=== PATIENT | male | born 1970 | race Caucasian/White ===

== ENCOUNTER 2017-05-01 09:23 | Inpatient (IN) | payer MEDICARE ==
[~2017-05-01] VITALS: Ht 177.8 cm; Wt 86.9 kg
[~2017-05-01 09:23] MED LIST: AMPH20TA2 PO; ATEN-104; DIAZ10TA; DIAZ2TAB PO; DISU500T2; HYDR50CA PO; OMEP-110 PO; OXCA300T PO; QUET400T4; TRAZ100T15 PO; ZIPR60CA2 PO; ZIPR80CA2; ZIPR80CA3 PO; ZOLP10TA
[2017-05-01 09:54] LABS: HEMATOCRIT 43.8 % (39.2-51.8); HEMOGLOBIN 14.5 g/dL (13.7-18.0); WHITE BLOOD COUNT 7.8 x10^3/uL (3.4-10)
[2017-05-01] MEDS ORDERED: SODIUM CHLORIDE FLUSH 10ML SYR IVF ONE (10:00)
[2017-05-01 10:03] LABS: ASPARTATE AMINO TRANSFERASE 71 U/L (15-37); BLOOD UREA NITROGEN 21 mg/dL (7-18)
[2017-05-01 11:31] LABS: DAU SCREEN DISCLAIMER
[2017-05-01] MEDS ORDERED: BACITRACIN ZINC OINT 500U/GM, 0.9 GM ONE (11:54)
[2017-05-01] MEDS ORDERED: SODIUM CHLORIDE 0.9% 1,000ML IVBOLUS ONE (12:30)
[2017-05-01] MEDS ORDERED: ONDANSETRON ODT 4 MG PO PRN (13:30)
[2017-05-01] MEDS ORDERED: ONDANSETRON 2MG/ML, 2ML IVPush PRN (13:30)
[2017-05-01] MEDS ORDERED: ZOLPIDEM 5MG TABLET PO PRN (13:30)
[2017-05-01] MEDS ORDERED: BISACODYL 10 MG SUPP PR PRN (13:30)
[2017-05-01] MEDS ORDERED: ACETAMINOPHEN 325 MG TABLET PO PRN (13:30)
[2017-05-01] MEDS ORDERED: LABETALOL 5MG/ML, 20ML IVPush PRN (13:30)
[2017-05-01 15:37] VITALS: BP 123/79
[2017-05-01] MEDS: SODIUM CHLORIDE 0.9% 1,000 ML IV SCH ×2 (16:42→21:40)
[2017-05-01] MEDS: OMEPRAZOLE 20 MG CAPSULE.DR PO SCH (17:36)
[2017-05-01] MEDS: HEPARIN 5,000 UNITS/ML, 1ML SQ SCH (17:36)
[2017-05-01 19:52] VITALS: BP 115/76
[2017-05-01] MEDS: NICOTINE 7 MG/24 HR PATCH.TD24 TD SCH (20:27)
[2017-05-01] MEDS: TRAZODONE 100MG TABLET PO SCH (20:27)
[2017-05-02] MEDS: HEPARIN 5,000 UNITS/ML, 1ML SQ SCH ×3 (00:51→16:46)
[2017-05-02 01:21] VITALS: BP 131/86
[2017-05-02] MEDS: SODIUM CHLORIDE 0.9% 1,000 ML IV SCH ×4 (03:09→16:08)
[2017-05-02 06:08] LABS: BLOOD UREA NITROGEN 24 mg/dL (7-18)
[2017-05-02 07:38] VITALS: BP 127/73
[2017-05-02] MEDS: OXCARBAZEPINE 150 MG TABLET PO SCH (09:00)
[2017-05-02] MEDS: ATENOLOL 50 MG TABLET PO SCH (09:00)
[2017-05-02] MEDS: OMEPRAZOLE 20 MG CAPSULE.DR PO SCH ×2 (09:03→16:50)
[2017-05-02 12:12] LABS: BLOOD UREA NITROGEN 27 mg/dL (7-18)
[2017-05-02 12:53] VITALS: BP 140/89
[2017-05-02] MEDS ORDERED: PHARMACY MAY ADJ FOR RENAL FX MC PRN (14:00)
[2017-05-02 18:05] LABS: BLOOD UREA NITROGEN 26 mg/dL (7-18)
[2017-05-02 19:41] VITALS: BP 111/75
[2017-05-02] MEDS: NICOTINE 7 MG/24 HR PATCH.TD24 TD SCH (20:00)
[2017-05-02] MEDS: THIAMINE 100MG TABLET PO SCH (21:18)
[2017-05-02] MEDS: TRAZODONE 100MG TABLET PO SCH (21:18)
[2017-05-02 23:33] LABS: BLOOD UREA NITROGEN 28 mg/dL (7-18)
[2017-05-03] MEDS: HEPARIN 5,000 UNITS/ML, 1ML SQ SCH ×3 (00:20→16:26)
[2017-05-03 00:38] VITALS: BP 111/74
[2017-05-03 05:21] LABS: BLOOD UREA NITROGEN 29 mg/dL (7-18)
[2017-05-03 06:45] VITALS: BP 122/79
[2017-05-03] MEDS: SODIUM CHLORIDE 0.9% 1,000 ML IV SCH ×2 (07:50→16:27)
[2017-05-03] MEDS: OMEPRAZOLE 20 MG CAPSULE.DR PO SCH ×2 (07:52→17:17)
[2017-05-03] MEDS: THIAMINE 100MG TABLET PO SCH ×2 (07:52→20:55)
[2017-05-03] MEDS: ATENOLOL 50 MG TABLET PO SCH (07:53)
[2017-05-03] MEDS: OXCARBAZEPINE 150 MG TABLET PO SCH (07:53)
[2017-05-03 12:39] VITALS: BP 120/77
[2017-05-03 12:58] LABS: BLOOD UREA NITROGEN 31 mg/dL (7-18)
[2017-05-03] MEDS ORDERED: BUSP10TA PO (14:30)
[2017-05-03] MEDS ORDERED: FLUO20TA25 PO (14:30)
[2017-05-03] MEDS ORDERED: QUET300T5 PO (14:30)
[2017-05-03] MEDS ORDERED: PHARMACY MAY ADJ FOR RENAL FX MC PRN (19:00)
[2017-05-03 19:20] VITALS: BP 132/86
[2017-05-03] MEDS: NICOTINE 7 MG/24 HR PATCH.TD24 TD SCH (20:00)
[2017-05-03] MEDS: QUETIAPINE 100MG TABLET PO SCH (20:55)
[2017-05-03] MEDS: TRAZODONE 100MG TABLET PO SCH (20:55)
[2017-05-03] MEDS: hydrOXyzine 50MG TABLET PO SCH (20:55)
[2017-05-04] MEDS: HEPARIN 5,000 UNITS/ML, 1ML SQ SCH ×3 (00:01→17:11)
[2017-05-04] MEDS: SODIUM CHLORIDE 0.9% 1,000 ML IV SCH ×4 (00:02→21:42)
[2017-05-04 00:58] VITALS: BP 131/86
[2017-05-04 04:48] LABS: BLOOD UREA NITROGEN 35 mg/dL (7-18)
[2017-05-04 06:45] VITALS: BP 108/70
[2017-05-04 08:06] VITALS: BP 118/66
[2017-05-04] MEDS: OMEPRAZOLE 20 MG CAPSULE.DR PO SCH ×2 (08:07→17:13)
[2017-05-04] MEDS: hydrOXyzine 50MG TABLET PO SCH ×3 (08:07→21:33)
[2017-05-04] MEDS: THIAMINE 100MG TABLET PO SCH ×2 (08:07→21:33)
[2017-05-04] MEDS: FLUOXETINE 20 MG CAPSULE PO SCH (08:07)
[2017-05-04] MEDS: QUETIAPINE 100MG TABLET PO SCH ×2 (08:08→21:34)
[2017-05-04] MEDS: ATENOLOL 50 MG TABLET PO SCH (08:08)
[2017-05-04] MEDS: OXCARBAZEPINE 150 MG TABLET PO SCH (08:08)
[2017-05-04] MEDS: DOCUSATE 100 MG CAPSULE PO PRN ×2 (08:16→21:48)
[2017-05-04 12:15] VITALS: BP 115/75
[2017-05-04 19:45] VITALS: BP 134/84
[2017-05-04] MEDS: NICOTINE 7 MG/24 HR PATCH.TD24 TD SCH (21:32)
[2017-05-04] MEDS: TRAZODONE 100MG TABLET PO SCH (21:34)
[2017-05-05 01:08] VITALS: BP 127/79
[2017-05-05] MEDS: HEPARIN 5,000 UNITS/ML, 1ML SQ SCH ×3 (01:13→16:45)
[2017-05-05] MEDS: SODIUM CHLORIDE 0.9% 1,000 ML IV SCH (04:33)
[2017-05-05 05:40] LABS: BLOOD UREA NITROGEN 33 mg/dL (7-18)
[2017-05-05 07:56] VITALS: BP 125/84
[2017-05-05] MEDS: FLUOXETINE 20 MG CAPSULE PO SCH (08:00)
[2017-05-05] MEDS: OMEPRAZOLE 20 MG CAPSULE.DR PO SCH ×2 (08:00→16:42)
[2017-05-05] MEDS: THIAMINE 100MG TABLET PO SCH ×2 (08:00→21:47)
[2017-05-05] MEDS: QUETIAPINE 100MG TABLET PO SCH ×2 (08:00→21:47)
[2017-05-05] MEDS: hydrOXyzine 50MG TABLET PO SCH ×3 (08:00→21:46)
[2017-05-05] MEDS: OXCARBAZEPINE 150 MG TABLET PO SCH (08:01)
[2017-05-05] MEDS: ATENOLOL 50 MG TABLET PO SCH (08:01)
[2017-05-05] MEDS: SODIUM ACETATE 75 MEQ in SODIUM CHLORIDE 0.45% 1,000 ML IV SCH ×2 (10:36→19:28)
[2017-05-05] MEDS: POTASSIUM CHLORIDE 20 MEQ PACKET PO SCH ×2 (10:37→16:43)
[2017-05-05 14:01] VITALS: BP 134/91
[2017-05-05] MEDS: NICOTINE 7 MG/24 HR PATCH.TD24 TD SCH (20:00)
[2017-05-05] MEDS: TRAZODONE 100MG TABLET PO SCH (21:47)
[2017-05-05 21:59] VITALS: BP 129/79
[2017-05-06] MEDS: HEPARIN 5,000 UNITS/ML, 1ML SQ SCH ×3 (00:39→16:49)
[2017-05-06] MEDS: SODIUM ACETATE 75 MEQ in SODIUM CHLORIDE 0.45% 1,000 ML IV SCH (02:37)
[2017-05-06 03:45] VITALS: BP 130/82
[2017-05-06 06:08] LABS: BLOOD UREA NITROGEN 29 mg/dL (7-18)
[2017-05-06] MEDS ORDERED: SODIUM CHLORIDE 0.45% IV SCH (08:00)
[2017-05-06] MEDS ORDERED: POTASSIUM CHLORIDE IV SCH (08:00)
[2017-05-06] MEDS ORDERED: SODIUM ACETATE IV SCH (08:00)
[2017-05-06] MEDS: THIAMINE 100MG TABLET PO SCH ×2 (08:12→20:40)
[2017-05-06] MEDS: OXCARBAZEPINE 150 MG TABLET PO SCH (08:12)
[2017-05-06] MEDS: POTASSIUM CHLORIDE 20 MEQ PACKET PO SCH ×2 (08:12→16:49)
[2017-05-06] MEDS: FLUOXETINE 20 MG CAPSULE PO SCH (08:13)
[2017-05-06] MEDS: QUETIAPINE 100MG TABLET PO SCH ×2 (08:13→20:40)
[2017-05-06] MEDS: OMEPRAZOLE 20 MG CAPSULE.DR PO SCH ×2 (08:13→16:50)
[2017-05-06] MEDS: ATENOLOL 50 MG TABLET PO SCH (08:13)
[2017-05-06] MEDS: hydrOXyzine 50MG TABLET PO SCH ×3 (08:13→20:39)
[2017-05-06 08:28] VITALS: BP 138/75
[2017-05-06 14:48] VITALS: BP 142/77
[2017-05-06] MEDS ORDERED: PHARMACY MAY ADJ FOR RENAL FX MC PRN (19:30)
[2017-05-06] MEDS ORDERED: ONDANSETRON ODT 4 MG PO PRN (19:30)
[2017-05-06] MEDS ORDERED: ONDANSETRON 2MG/ML, 2ML IVPush PRN (19:30)
[2017-05-06] MEDS ORDERED: ZOLPIDEM 5MG TABLET PO PRN (19:30)
[2017-05-06] MEDS ORDERED: LABETALOL 5MG/ML, 20ML IVPush PRN (19:30)
[2017-05-06] MEDS ORDERED: ACETAMINOPHEN 325 MG TABLET PO PRN (19:30)
[2017-05-06 19:54] VITALS: BP 135/72
[2017-05-06] MEDS: NICOTINE 7 MG/24 HR PATCH.TD24 TD SCH (20:00)
[2017-05-06] MEDS: POTASSIUM CHLORIDE IV SCH (20:36)
[2017-05-06] MEDS: SODIUM CHLORIDE 0.45% IV SCH (20:36)
[2017-05-06] MEDS: SODIUM ACETATE IV SCH (20:36)
[2017-05-06] MEDS: TRAZODONE 100MG TABLET PO SCH (20:40)
[2017-05-07] MEDS: HEPARIN 5,000 UNITS/ML, 1ML SQ SCH ×3 (00:11→16:31)
[2017-05-07 00:14] VITALS: BP 130/79
[2017-05-07] MEDS: SODIUM ACETATE IV SCH ×4 (03:54→21:54)
[2017-05-07] MEDS: POTASSIUM CHLORIDE IV SCH ×4 (03:54→21:54)
[2017-05-07] MEDS: SODIUM CHLORIDE 0.45% IV SCH ×4 (03:54→21:54)
[2017-05-07 07:19] VITALS: BP 142/88
[2017-05-07] MEDS: POTASSIUM CHLORIDE 20 MEQ PACKET PO SCH ×2 (07:46→17:28)
[2017-05-07] MEDS: OMEPRAZOLE 20 MG CAPSULE.DR PO SCH ×2 (07:46→17:28)
[2017-05-07 08:47] LABS: BLOOD UREA NITROGEN 22 mg/dL (7-18)
[2017-05-07] MEDS: OXCARBAZEPINE 150 MG TABLET PO SCH (09:00)
[2017-05-07] MEDS: ATENOLOL 50 MG TABLET PO SCH (09:00)
[2017-05-07] MEDS: THIAMINE 100MG TABLET PO SCH ×2 (09:22→20:05)
[2017-05-07] MEDS: QUETIAPINE 100MG TABLET PO SCH ×2 (09:23→20:05)
[2017-05-07] MEDS: hydrOXyzine 50MG TABLET PO SCH ×3 (09:23→20:05)
[2017-05-07] MEDS: FLUOXETINE 20 MG CAPSULE PO SCH (09:23)
[2017-05-07 14:14] VITALS: BP 135/86
[2017-05-07] MEDS: NICOTINE 7 MG/24 HR PATCH.TD24 TD SCH (20:00)
[2017-05-07 20:02] VITALS: BP 147/92
[2017-05-07] MEDS: TRAZODONE 100MG TABLET PO SCH (20:05)
[2017-05-08 01:55] VITALS: BP 159/82
[2017-05-08] MEDS: HEPARIN 5,000 UNITS/ML, 1ML SQ SCH ×3 (02:12→17:03)
[2017-05-08 05:25] LABS: HEMATOCRIT 33.6 % (39.2-51.8); HEMOGLOBIN 11.1 g/dL (13.7-18.0); WHITE BLOOD COUNT 7.4 x10^3/uL (3.4-10)
[2017-05-08] MEDS: POTASSIUM CHLORIDE IV SCH (05:28)
[2017-05-08] MEDS: SODIUM ACETATE IV SCH (05:28)
[2017-05-08] MEDS: SODIUM CHLORIDE 0.45% IV SCH (05:28)
[2017-05-08 05:33] LABS: BLOOD UREA NITROGEN 19 mg/dL (7-18)
[2017-05-08 05:37] LABS: ASPARTATE AMINO TRANSFERASE 53 U/L (15-37)
[2017-05-08 06:50] VITALS: BP 148/88
[2017-05-08] MEDS: POTASSIUM CHLORIDE 20 MEQ PACKET PO SCH ×2 (08:54→17:02)
[2017-05-08] MEDS: hydrOXyzine 50MG TABLET PO SCH ×3 (08:55→21:53)
[2017-05-08] MEDS: OMEPRAZOLE 20 MG CAPSULE.DR PO SCH ×2 (08:55→17:02)
[2017-05-08] MEDS: FLUOXETINE 20 MG CAPSULE PO SCH (08:56)
[2017-05-08] MEDS: ATENOLOL 50 MG TABLET PO SCH (08:56)
[2017-05-08] MEDS: QUETIAPINE 100MG TABLET PO SCH ×2 (08:56→21:54)
[2017-05-08] MEDS: OXCARBAZEPINE 150 MG TABLET PO SCH (08:57)
[2017-05-08] MEDS: THIAMINE 100MG TABLET PO SCH ×2 (08:57→21:54)
[2017-05-08] MEDS ORDERED: MAGNESIUM SULFATE PMX 2GM/50ML 50 ML IV ONE (11:00)
[2017-05-08] MEDS: MULTIVITAMIN 1 TABLET PO SCH (12:07)
[2017-05-08] MEDS: MAGNESIUM CHLORIDE 64 MG TABLET.DR PO SCH ×2 (12:07→21:54)
[2017-05-08] MEDS: MAGNESIUM OXIDE 400 MG TABLET PO SCH ×2 (12:07→21:53)
[2017-05-08 14:53] VITALS: BP 114/70
[2017-05-08] MEDS: NICOTINE 7 MG/24 HR PATCH.TD24 TD SCH (20:00)
[2017-05-08 20:02] VITALS: BP 131/80
[2017-05-08] MEDS: TRAZODONE 100MG TABLET PO SCH (21:54)
[2017-05-09] MEDS: HEPARIN 5,000 UNITS/ML, 1ML SQ SCH ×3 (01:18→16:59)
[2017-05-09 01:56] VITALS: BP 134/70
[2017-05-09 06:52] VITALS: BP 133/85
[2017-05-09 07:18] LABS: BLOOD UREA NITROGEN 18 mg/dL (7-18)
[2017-05-09] MEDS: OXCARBAZEPINE 150 MG TABLET PO SCH (09:25)
[2017-05-09] MEDS: THIAMINE 100MG TABLET PO SCH (09:25)
[2017-05-09] MEDS: POTASSIUM CHLORIDE 20 MEQ PACKET PO SCH ×2 (09:25→16:58)
[2017-05-09] MEDS: OMEPRAZOLE 20 MG CAPSULE.DR PO SCH ×2 (09:26→16:58)
[2017-05-09] MEDS: hydrOXyzine 50MG TABLET PO SCH ×2 (09:26→16:58)
[2017-05-09] MEDS: MULTIVITAMIN 1 TABLET PO SCH (09:26)
[2017-05-09] MEDS: QUETIAPINE 100MG TABLET PO SCH (09:26)
[2017-05-09] MEDS: MAGNESIUM CHLORIDE 64 MG TABLET.DR PO SCH (09:26)
[2017-05-09] MEDS: MAGNESIUM OXIDE 400 MG TABLET PO SCH (09:26)
[2017-05-09] MEDS: FLUOXETINE 20 MG CAPSULE PO SCH (09:27)
[2017-05-09] MEDS: ATENOLOL 50 MG TABLET PO SCH (09:30)
[2017-05-09 12:35] VITALS: BP 126/80
[2017-05-09] MEDS ORDERED: MULT1TAB60 PO (13:21)
[2017-05-09] MEDS ORDERED: DOCU-131 PO (13:21)
== END 2017-05-09 17:50 | DRG 682 ==
LOC: ED 12:39 → EDIP 12:40 → ED 13:12 → 4NOR 15:25
PROVIDERS: ADMIT Internal Medicine; ATTEND Internal Medicine
DX: N17.0 Acute kidney failure with tubular necrosis (principal); G92 Toxic encephalopathy; E43 Unspecified severe protein-calorie malnutrition; M62.82 Rhabdomyolysis; E87.2 Acidosis; K70.9 Alcoholic liver disease, unspecified; E83.42 Hypomagnesemia; E87.1 Hypo-osmolality and hyponatremia; T43.621A Poisoning by amphetamines, accidental (unintentional), initial encounter; T42.4X1A Poisoning by benzodiazepines, accidental (unintentional), initial encounter; F15.929 Other stimulant use, unspecified with intoxication, unspecified; E87.6 Hypokalemia; F17.210 Nicotine dependence, cigarettes, uncomplicated; F20.9 Schizophrenia, unspecified; F41.9 Anxiety disorder, unspecified; I10 Essential (primary) hypertension; K21.9 Gastro-esophageal reflux disease without esophagitis; F32.9 Major depressive disorder, single episode, unspecified; M19.90 Unspecified osteoarthritis, unspecified site; S80.212A Abrasion, left knee, initial encounter; S80.211A Abrasion, right knee, initial encounter; Y08.89XA Assault by other specified means, initial encounter; Y93.89 Activity, other specified; Y92.89 Other specified places as the place of occurrence of the external cause; Z87.81 Personal history of (healed) traumatic fracture
CPT/HCPCS: 36415; 70450; 72125; 80048; 80053; 80076; 80307; 82550; 83735; 84100; 85025; 96360; 96361; J1644; J3480; J3475; J7030

== ENCOUNTER 2019-02-28 12:07 | Inpatient (IN) | payer MEDICARE ==
[~2019-02-28] VITALS: Ht 170.2 cm; Wt 75.3 kg
[~2019-02-28 12:07] MED LIST changes: +BUSP10TA PO; +DOCU-131 PO; +FLUO20TA25 PO; +MULT1TAB60 PO; -OXCA300T PO; +OXCA300T19 PO; +QUET300T5 PO; +TRAZ-137 PO; -TRAZ100T15 PO
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
[2019-02-28] MEDS ORDERED: PLEASE ENTER HEIGHT AND WEIGHT MC SCH (12:30)
[2019-02-28] MEDS ORDERED: LORazepam 2 MG/ML, 1ML IM ONE (12:30)
[2019-02-28] MEDS ORDERED: PLEASE ENTER ALLERGIES MC SCH (12:30)
[2019-02-28] MEDS ORDERED: ZIPRASIDONE 20 MG INJ IM ONE ×2 (12:30→12:34)
[2019-02-28] MEDS ORDERED: LORazepam 2 MG/ML, 1ML ONE (12:35)
--- NOTE | 2019-02-28 12:36 | NUR ---
Report from Jaylin HEWITT. Pt thrashing in bed, remains in 4 point leather restraints, safety maintained. Pt screaming, rambling speech. Sitter at bedside.
--- NOTE | 2019-02-28 13:06 | NUR ---
Attepted EKG at 1306, unable to get it. PT still hyperactive and thrashing around.
--- NOTE | 2019-02-28 13:32 | NUR ---
Pt still agitated, unable to complete CT at this time.
[2019-02-28 13:40] LABS: MEAN CORPUSCULAR HEMOGLOBIN 29.3 pg (27.5-34.5); MEAN CORPUSCULAR HGB CONC 32.9 g/dL (33.2-36.2); MEAN CORPUSCULAR VOLUME 89.2 fL (81-97); MEAN PLATELET VOLUME 7.6 fL (7.4-10.4); PLATELET COUNT 251 x10^3/uL (130-400); RED BLOOD COUNT 5.38 x10^6/uL (4.38-5.82); RED CELL DISTRIBUTION WIDTH 13.2 % (9.4-14.8)
[2019-02-28 13:48] LABS: ALANINE AMINOTRANSFERASE 40 U/L (12-78); ALBUMIN 4.3 g/dL (3.4-5.0); ANION GAP 15 mmol/L (5-15); CALCIUM 9.5 mg/dL (8.5-10.1); CHLORIDE 105 mmol/L (98-107); CREATININE 1.47 mg/dL (0.7-1.3)
[2019-02-28 13:54] LABS: SALICYLATE LEVEL < 1.7 mg/dL (2.8-20.0)
[2019-02-28 14:01] LABS: ALKALINE PHOSPHATASE 86 U/L (45-117); BILIRUBIN,TOTAL 1.7 mg/dL (0.2-1.0); CREATINE KINASE, TOTAL 1412 U/L (39-308); TOTAL PROTEIN 8.2 g/dL (6.4-8.2)
[2019-02-28 14:07] LABS: MD YES
[2019-02-28 14:10] LABS: BANDS%(MANUAL) 7 % (0-7); LYMPH#(MANUAL) 0.81 x10^3/uL (1-3.4); LYMPHS% (MANUAL) 3 % (22-44); MONOS#(MANUAL) 1.08 x10^3/uL (0.3-2.7); MONOS% (MANUAL) 4 % (2-9); REACTIVE LYMPHS # (MANUAL) 0.54 x10^3/uL (0-0); REACTIVE LYMPHS % (MANUAL) 2 % (0-0); SEG#(MANUAL) 22.76 x10^3/uL (1.8-6.8); SEGS% (MANUAL) 84 % (42-75)
--- NOTE | 2019-02-28 14:10 | NUR ---
Pt more calm, to CT with security to stand by for safety. Pt back to room, positioned for comfort in bed. Pt's O2 sat 85% on RA. 2L O2 applied via NC with O2 sat up to 93%. Pt with intermittent episodes of agitation. Dr. Castillo updated.
[2019-02-28 14:11] LABS: <RBC MORPHOLOGY> NORMAL
[2019-02-28 14:12] LABS: <PLATELET ESTIMATE> ADEQUATE; <PLT MORPHOLOGY> NORMAL PLT MORPH
--- NOTE | 2019-02-28 15:00 | NUR ---
No changes in pt condition.
--- NOTE | 2019-02-28 16:10 | NUR ---
Pt's Alley called ED to check if pt is here. Alley updated that pt is here and condition is stable. This RN advised Alley that this RN is unable to give any more medical information over the phone due to HIPPA laws. Alley verbalizes understanding of this, requests this RN call with any updates. Pt continues resting in bed with intermittent periods of agitation. Sitter at bedside.
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
[2019-02-28] MEDS: SODIUM CHLORIDE 0.9% 1,000 ML IV SCH (16:23)
[2019-02-28] MEDS ORDERED: SODIUM CHLORIDE FLUSH 10ML SYR IVF PRN (16:30)
[2019-02-28] MEDS: HEPARIN 5,000 UNITS/ML, 1ML SQ SCH ×2 (16:30→23:16)
[2019-02-28] MEDS ORDERED: LORazepam 2 MG/ML, 1ML IVPush PRN (16:30)
[2019-02-28] MEDS ORDERED: ZIPRASIDONE 20 MG INJ IM PRN (16:30)
[2019-02-28 17:22] VITALS: BP 135/91
[2019-02-28 18:03] VITALS: BP 135/91
[2019-03-01] MEDS ORDERED: FLUO40CA9 PO (01:41)
[2019-03-01] MEDS ORDERED: ZOLP10TA PO (01:41)
[2019-03-01] MEDS ORDERED: QUET400T4 PO (01:41)
[2019-03-01] MEDS: SODIUM CHLORIDE 0.9% 1,000 ML IV SCH ×2 (02:48→10:27)
[2019-03-01 03:13] VITALS: BP 130/81
[2019-03-01 04:01] LABS: CULTURE INDICATED? NO; MICROSCOPIC AUTO
[2019-03-01 04:04] LABS: AMPHETAMINE SCREEN, URINE Positive (Negative); BARBITURATE SCREEN, URINE Negative (Negative); BENZODIAZEPINE SCREEN, URINE Positive (Negative); CANNABINOID SCREEN, URINE Negative (Negative); COCAINE SCREEN, URINE Negative (Negative); METHADONE SCREEN, URINE Negative (Negative); OPIATE SCREEN, URINE Negative (Negative)
[2019-03-01 05:46] LABS: BASOPHILS # (AUTO) 0.12 x10^3/uL (0-0.1); BASOPHILS % (AUTO) 1 % (0-1); EOSINOPHILS # (AUTO) 0.02 x10^3/uL (0-0.4); EOSINOPHILS % (AUTO) 0 % (1-7); LYMPHOCYTES # (AUTO) 0.89 x10^3/uL (1-3.4); LYMPHOCYTES % (AUTO) 6 % (22-44); MD NO; MEAN CORPUSCULAR HEMOGLOBIN 29.5 pg (27.5-34.5); MEAN CORPUSCULAR HGB CONC 32.9 g/dL (33.2-36.2); MEAN CORPUSCULAR VOLUME 89.7 fL (81-97); MEAN PLATELET VOLUME 7.5 fL (7.4-10.4); MONOCYTES # (AUTO) 1.01 x10^3/uL (0.2-0.8); MONOCYTES % (AUTO) 6 % (2-9); NEUTROPHILS % (AUTO) 87 % (42-75); PLATELET COUNT 210 x10^3/uL (130-400); RED BLOOD COUNT 5.13 x10^6/uL (4.38-5.82); RED CELL DISTRIBUTION WIDTH 13.9 % (9.4-14.8)
[2019-03-01 05:55] LABS: ALBUMIN 3.8 g/dL (3.4-5.0); ANION GAP 7 mmol/L (5-15); CALCIUM 8.8 mg/dL (8.5-10.1); CHLORIDE 109 mmol/L (98-107)
[2019-03-01 06:11] LABS: ALANINE AMINOTRANSFERASE 42 U/L (12-78); ALKALINE PHOSPHATASE 73 U/L (45-117); BILIRUBIN,TOTAL 1.4 mg/dL (0.2-1.0); CHOL/HDL RATIO 2.2; CHOLESTEROL, TOTAL 114 mg/dL (140-239); CREATINE KINASE, TOTAL 3206 U/L (39-308); CREATININE 1.24 mg/dL (0.7-1.3); HDL CHOL % 46 % (26-37); HDL CHOLESTEROL (DIRECT) 52 mg/dL (40-60); LDL CHOLESTEROL,CALCULATED 47 mg/dL (54-169); LDL/HDL RATIO 0.9 (0.5-3.0); TOTAL PROTEIN 7.5 g/dL (6.4-8.2); TRIGLYCERIDES 73 mg/dL (50-200); VLDL CHOLESTEROL 15 mg/dL (0-25)
[2019-03-01 06:43] VITALS: BP 122/83
[2019-03-01] MEDS: HEPARIN 5,000 UNITS/ML, 1ML SQ SCH (10:27)
[2019-03-01 13:24] VITALS: BP 136/92
== END 2019-03-01 12:00 | disposition left against medical advice (07) | DRG 917 ==
LOC: EDBD 12:07 → MERGE 12:07 → ED 15:37 → EDIP 16:06 → 3NE 17:13
PROVIDERS: ADMIT Internal Medicine; ATTEND Internal Medicine
DX: T43.621A Poisoning by amphetamines, accidental (unintentional), initial encounter (principal); G92 Toxic encephalopathy; N17.0 Acute kidney failure with tubular necrosis; F20.0 Paranoid schizophrenia; M62.82 Rhabdomyolysis; D72.829 Elevated white blood cell count, unspecified; E86.0 Dehydration; F15.10 Other stimulant abuse, uncomplicated; I10 Essential (primary) hypertension; K21.9 Gastro-esophageal reflux disease without esophagitis; F10.20 Alcohol dependence, uncomplicated; F32.9 Major depressive disorder, single episode, unspecified; F41.9 Anxiety disorder, unspecified; R73.9 Hyperglycemia, unspecified; Y92.89 Other specified places as the place of occurrence of the external cause
CPT/HCPCS: 36415; 70450; 71045; 80053; 80061; 80307; 81001; 82550; 83735; 84100; 84443; 85025; 93005; 96372; 99291; G0378; J1644; J3486; J2060; J7030

== ENCOUNTER 2019-07-30 23:30 | Emergency (ER) | payer MEDICARE ==
[~2019-07-30] VITALS: Ht 177.8 cm; Wt 81.8 kg
[~2019-07-30 23:30] MED LIST changes: +FLUO40CA9 PO; +QUET400T4 PO; +ZOLP10TA PO
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
--- NOTE | 2019-07-30 23:38 | NUR ---
EKG PERFORMED, R FOOT I&D OCCURING. PT CONNECTED TO MONITORING. ALL SAFETY MEASRUES IN PLACE. RESTRAINTS PLACED BY SECURITY. CALL LIGHT WITHIN REACH.
[2019-07-30] MEDS ORDERED: LORazepam 2 MG/ML, 1ML ONE (23:48)
[2019-07-30] MEDS ORDERED: DIPH,PERTUSS(ACELL),TET VAC/PF 0.5 ML IM-VACC ONE (23:48)
[2019-07-30] MEDS ORDERED: NEOSPORIN OINT. PKT 1 PACKET ONE (23:56)
[2019-07-31] LABS: BASOPHILS # (AUTO) 0.03 x10^3/uL (0-0.1); BASOPHILS % (AUTO) 0 % (0-1); EOSINOPHILS # (AUTO) 0.05 x10^3/uL (0-0.4); EOSINOPHILS % (AUTO) 1 % (1-7); LYMPHOCYTES # (AUTO) 1.56 x10^3/uL (1-3.4); LYMPHOCYTES % (AUTO) 19 % (22-44); MD NO; MEAN CORPUSCULAR HEMOGLOBIN 30.4 pg (27.5-34.5); MEAN CORPUSCULAR HGB CONC 32.6 g/dL (33.2-36.2); MEAN CORPUSCULAR VOLUME 93.1 fL (81-97); MEAN PLATELET VOLUME 8.5 fL (7.4-10.4); MONOCYTES # (AUTO) 0.58 x10^3/uL (0.2-0.8); MONOCYTES % (AUTO) 7 % (2-9); NEUTROPHILS # (AUTO) 6.22 x10^3/uL (1.8-6.8); NEUTROPHILS % (AUTO) 74 % (42-75); PLATELET COUNT 241 x10^3/uL (130-400); RED BLOOD COUNT 5.24 x10^6/uL (4.38-5.82); RED CELL DISTRIBUTION WIDTH 13.1 % (9.4-14.8)
[2019-07-31] MEDS ORDERED: SODIUM CHLORIDE 0.9% 1,000ML IVBOLUS ONE
[2019-07-31] MEDS ORDERED: LORazepam 2 MG/ML, 1ML IVPush ONE
[2019-07-31] MEDS ORDERED: DIPH,PERTUSS(ACELL),TET VAC/PF 0.5 ML IM-VACC ONE
--- NOTE | 2019-07-31 00:07 | NUR ---
LABS DRAWN. PT MEDICATED PER NOV. PT RESTING ON GURNEY WITH EYES CLOSED. RESTRAINTS IN PLACE, PULSES INTACT. ALL MONITORING AND SAFETY MEASURES IN PLACE. IVF INFUSING. PT PROVIDED BLANKET.
[2019-07-31 00:10] LABS: ALANINE AMINOTRANSFERASE 51 U/L (12-78); ALBUMIN 4.2 g/dL (3.4-5.0); ANION GAP 24 mmol/L (5-15); CALCIUM 9.5 mg/dL (8.5-10.1); CHLORIDE 102 mmol/L (98-107); CREATININE 1.67 mg/dL (0.7-1.3); SALICYLATE LEVEL 2.9 mg/dL (2.8-20.0)
[2019-07-31 00:13] LABS: ALKALINE PHOSPHATASE 82 U/L (45-117); BILIRUBIN,TOTAL 0.7 mg/dL (0.2-1.0); CREATINE KINASE, TOTAL 559 U/L (39-308); TOTAL PROTEIN 8.3 g/dL (6.4-8.2)
--- NOTE | 2019-07-31 00:31 | NUR ---
ASKED DR. LI IF STRAIGHT CATH NECESSARY FOR DRUG SCREEN. MD DENIES NEED. PT RESTING IN BED WITH EYES OPEN. PT INTERMITTENTLY JERKING AROUND. RESTRAINTS IN PLACE, PULSES 2+ EQUAL BILAT IN ALL LIMBS. IVF INFUSING. PT MORE COOPERATIVE, IS ALERT WITH EYES OPEN. PT AOX4 AT THIS TIME. REPORTS METH AND ETOH USE TONIGHT. RESTRAINTS REMOVED.
--- NOTE | 2019-07-31 00:47 | NUR ---
PT. WAS ABLE TO GIVE NAME AND REGISTRATION WAS NOTIFIED. PT. HAS BEEN CALM AND COOPERATIVE WITH STAFF OUT OF RESTRAINTS AND IS AGREEABLE TO POC AT THIS TIME. IVF INFUSING PER ORDER. PT. ABLE TO VOID VIA URINAL; URINE COLLECTED AND SENT TO LAB. PT. ALSO DRINKING WATER. [facility]IGHT IN REACH.
--- NOTE | 2019-07-31 00:49 | NUR ---
CALLED CT TO LET THEM KNOW PT. READY FOR CT NOW.
--- NOTE | 2019-07-31 01:02 | NUR ---
PT. OUT OF ROOM FOR IMAGING NOW.
[2019-07-31 01:16] LABS: AMPHETAMINE SCREEN, URINE Positive (Negative); BARBITURATE SCREEN, URINE Negative (Negative); BENZODIAZEPINE SCREEN, URINE Negative (Negative); CANNABINOID SCREEN, URINE Negative (Negative); COCAINE SCREEN, URINE Negative (Negative); METHADONE SCREEN, URINE Negative (Negative); OPIATE SCREEN, URINE Negative (Negative)
--- NOTE | 2019-07-31 01:53 | NUR ---
PT IN ROOM RESTING WITH EYES CLOSED. NO DISTRESS NOTED, NO FACIAL GRIMACE, RELAXED BODY POSITION. MONITORS CONNECTED, ALL SAFETY MEASURES IN PLACE.
[2019-07-31 02:20] VITALS: BP 126/82
[2019-07-31] MEDS ORDERED: LIDOCAINE-MPF 1%, 5ML ONE (02:29)
--- NOTE | 2019-07-31 02:46 | NUR ---
UPON STANDING UP PT. FOOT STARTED BLEEDING THROUGH PREVIOUSLY PLACED DRESSING. PT. BACK TO [facility] AND DR. PEREZ AT TO NUMB, CLEANSE, AND STAPLE WOUND TO BOTTOM OF RIGHT FOOT. WOUND RE-DRESSED BY DR. PEREZ WITH ADAPTIC AND KERLEX. PT. TO RECEIVE IM ABX AND RX FOR ABX PRIOR TO D/C.
[2019-07-31] MEDS ORDERED: CEFAZOLIN 1,000 MG ONE (02:55)
[2019-07-31] MEDS ORDERED: CEFAZOLIN 1,000 MG IM ONE (03:00)
--- NOTE | 2019-07-31 03:17 | NUR ---
PT GIVEN FIRST ABX PER NOV. PT EDUCATED ON IMPORTANCE OF COMPLETING FULL ROUND OF ABX, PT EDUCATED ON FOOT/WOUND CARE AND TO HAVE JOSE ELIAS REMOVED IN APPX 1 WEEK. PT COMMUNICATED UNDERSTANDING. PT PROVIDED CLOTHING, SHOES. DISCHARGED IN WHEELCHAIR AND GIVEN TAXI VOUCHER HOME.
== END 2019-07-31 03:21 | disposition home or self-care (01) ==
LOC: EDBD 23:42 → ED 23:42 → MERGE 23:42 → ED 07-31 03:21
DX: S91.322A Laceration with foreign body, left foot, initial encounter (principal); E86.0 Dehydration; F15.10 Other stimulant abuse, uncomplicated
CPT/HCPCS: 12042; 36415; 70450; 71045; 73630; 80053; 80307; 82550; 83605; 85025; 90471; 90715; 93005; 96361; 96372; 96374; 99285; J0690; J2060; J7030